=== PATIENT | female | born 1965 | race African-American/Black ===

== ENCOUNTER → 2021-01-01 | Outpatient (CLI) | payer BC ==
[~2021-01-01] VITALS: Ht 162.6 cm; Wt 142.2 kg
[~2021-01-01] MED LIST: AMITRIPTYLINE H10 M1 PO; IRON; LOSARTAN-HCTZ1 EAC2 PO; MEDROLDOSEPACK PO; NAPROSYN500 M1 PO; NORVASC5 MG PO; TYLENOL ARTHRI650 MG PO; VITAMIN D325 MC1 PO; ZANTAC 150MG T150 M1 PO; ZINC50 M3 PO
--- NOTE | ~2021-01-01 | HPC ---
[facility] [place] [address] PAIN MANAGEMENT CONSULTATION Name: INES MORELAND Room #: REG JOSSELINE Marlon.#: [id number] Admission: 01/01/21 Attend Phys: Rod Landrum MD Discharge: Date of : 69 Report #: [id number] THIS REPORT FOR: cc: Trinh Sanders MD,Rod Orosco MD, MD ~ cc: Trinh Sanders MD DATE OF SERVICE: 01/01/2021 CHIEF COMPLAINT: Right buttocks pain down into the left calf. HISTORY OF PRESENT ILLNESS: The patient is a 55-year-old female who has been experiencing pain in the right side for about the last month. Her pain started after doing a [employer] exercise class. She has had back and leg pain in the past, first noted problems in about 1997. She has had some pain which has waxed and waned. She rates her pain as 5/10 at this juncture. She has tried muscle relaxants and nonsteroidal anti-inflammatory medications. She has had both COVID-19 vaccinations. She has undergone chiropractic treatment with no long-term benefit. She is experiencing heaviness in her right leg. She has pain in the buttocks that radiates down the right side into her right leg. She denies any bowel or bladder dysfunction at this juncture. Pain is worse when she is lying down as well as with walking. Sleep can be problematic because of the pain. She notes that the pain is worse after the first few steps. She describes the pain as continuous, constant, aching, sharp and tender. She works as a nightman. She has been doing light duty working on the [employer]. She has come to the pain clinic for evaluation and treatment. MEDICATIONS: ____ mg p.o. daily, losartan/hydrochlorothiazide, Tylenol 600 mg Extra Strength 2 tablets p.o. q.12 hours p.r.n. pain, Naprosyn 500 mg p.r.n. pain, vitamin D3 1000 units daily, zinc 1 tablet daily. ALLERGIES: No known drug allergies. PAST MEDICAL HISTORY: Hypertension. PAST SURGICAL HISTORY: Gallbladder removal 2000; uterine cyst removal 2009. SOCIAL HISTORY, PQRS: VITAL SIGNS: Blood pressure 167/90, heart rate 83, respiratory rate 16, room air saturation is 100%, height 5 feet 4 inches, weight 313 pounds. Pain intensity 3/10. Blood thinner: The patient is not receiving blood thinning medication. Functional assessment ____: 54/70. [address] [address] PAIN MANAGEMENT CONSULTATION Name: INES MORELAND [facility] [id number] Admission: 01/01/21 Attend Phys: Rod Landrum MD Discharge: Date of : 69 Report #: [id number] Hypertension: The patient has been treated for hypertension. Tobacco: The patient has never smoked. Recreational drug use: The patient denies. Alcohol: The patient denies. Risk assessment ____: Low for opioid use. REVIEW OF SYSTEMS, EARS, EYES, NOSE AND THROAT: The patient wears glasses. CARDIOVASCULAR: Hypertension. RESPIRATORY: No complaints. GASTROINTESTINAL: None. GENITOURINARY: Awakens at night to micturate. MUSCULOSKELETAL: Fever, night sweats, fatigue, weakness. NEUROLOGIC: None. INTEGUMENTARY: None. PSYCHIATRIC: Insomnia. ENDOCRINE: Gallbladder. HEMATOLOGIC/LYMPHATICS: None. PHYSICAL EXAMINATION: GENERAL: The patient is a well-developed, well-nourished, obese black female. Appears her stated age. She is alert and oriented x 3. Her affect is appropriate. Speech is fluent. HEENT: Normocephalic, atraumatic. Extraocular eye muscles intact. Sclerae are nonicteric. The patient is wearing a facial covering. NECK: Without adenopathy or JVD. HEART: Regular rate. LUNGS: Clear to auscultation. ABDOMEN: Nontender. MUSCULOSKELETAL: Upper extremity muscle strength judged to be 5/5 for the major muscle groups in the upper extremity. The patient without significant scoliosis, kyphosis. Lower extremity, patient has pain and discomfort in the lower portion of her back with pain that is radiating down in the right buttocks and the L5-S1 dermatomal distribution. The patient walks with a slight antalgic gait. Positive straight leg raise on the right. LABORATORY DATA: No new laboratory values. IMPRESSION: 1. Right sciatic nerve pain with radiculopathy. 2. Hypertension. 3. Morbid obesity. [address] [address] PAIN MANAGEMENT CONSULTATION Name: INES MORELAND Room #: REG ARNOLDOFuentes Kumar#: [id number] Admission: 01/01/21 Attend Phys: Rod Landrum MD Discharge: Date of : 69 Report #: [id number] RECOMMENDATIONS: We discussed treatment options with the patient. At this juncture, we will try a conservative approach. The patient is having some difficulty sleeping. We will have the patient try amitriptyline. She will try 10 mg tablets for about 3 days. If she does not have any problems with that, she will increase it to 2 tablets for a total of 20 mg at bedtime. The patient will also try a Medrol Dosepak as directed. She will try this and return to the pain clinic. At that time, we will evaluate her for the possibility of a lumbar epidural steroid injection should she need or elect to proceed. We would like to thank you for letting us participate in her care. We hope she continues to improve. By: [id number] Rod Landrum MD /cinthia
[2021-01-01 08:51] VITALS: BP 167/90
--- NOTE | 2021-01-01 09:02 | NUR ---
Pain Clinic Assessment: 1. History of Osteoarthritis: RIGHT HIP History of Rheumatoid Arthritis: Not Applicable 2. Height: 5 ft. 4 in. 162.6 cm. Weight: 313.4 lb. oz. 142.158 kg. Patient's BMI: 53.8 3. Vital Signs: BP: 167/90 Pulse: 83 Resp: 18 Temp: 02 Sat: 100 ECG Mon: 4. Pain Intensity: 5 TO 10 5. Fall Risk: Dizziness: N Needs help standing or walking: N Fallen in the last 3 months: Y Fall risk comments: 6. Patient on Blood Thinner: None 7. History of Hypertension: Y 8. Opioid Therapy greater than 6 weeks: N Opiate Contract Signed: 9. Risk Assessment Tool Provided: LOW-0 10. Functional Assessment Tool: 54/ 11. Recreational Drug Use: Never Drug Type: Tobacco Use: Never Smoker Tobacco Type: Amount or Packs/day: How Many Years: Alcohol Use: No Frequency: Quant:
== END ==
LOC: PAIN 06:59
PROVIDERS: ATTEND Anesthesiology Pain Medicine
DX: M54.31 Sciatica, right side (principal); M54.16 Radiculopathy, lumbar region; I10 Essential (primary) hypertension; E66.01 Morbid (severe) obesity due to excess calories; Z79.899 Other long term (current) drug therapy; Z79.891 Long term (current) use of opiate analgesic

== ENCOUNTER → 2021-01-13 | Outpatient (CLI) | payer BC ==
[~2021-01-13] VITALS: Ht 162.6 cm; Wt 142.0 kg
[2021-01-13 12:00] VITALS: BP 162/91
--- NOTE | 2021-01-13 12:03 | NUR ---
Pain Clinic Assessment: 1. History of Osteoarthritis: RIGHT HIP History of Rheumatoid Arthritis: Not Applicable 2. Height: 5 ft. 4 in. 162.6 cm. Weight: 313.0 lb. oz. 141.976 kg. Patient's BMI: 53.7 3. Vital Signs: BP: 162/91 Pulse: 92 Resp: 16 Temp: 02 Sat: 100 ECG Mon: 4. Pain Intensity: 3 5. Fall Risk: Dizziness: N Needs help standing or walking: N Fallen in the last 3 months: N Fall risk comments: 6. Patient on Blood Thinner: None 7. History of Hypertension: Y 8. Opioid Therapy greater than 6 weeks: N Opiate Contract Signed: 9. Risk Assessment Tool Provided: LOW-0 10. Functional Assessment Tool: 54/70 11. Recreational Drug Use: Never Drug Type: Tobacco Use: Never Smoker Tobacco Type: Amount or Packs/day: How Many Years: Alcohol Use: No Frequency: Quant:
== END | disposition home or self-care (01) ==
LOC: PAIN 07:12
PROVIDERS: ATTEND Anesthesiology Pain Medicine
DX: M54.16 Radiculopathy, lumbar region (principal); G89.29 Other chronic pain; Z98.890 Other specified postprocedural states; Z79.899 Other long term (current) drug therapy

== ENCOUNTER → 2021-02-17 | Outpatient (CLI) | payer BC ==
[~2021-02-17] VITALS: Ht 162.6 cm; Wt 139.9 kg
[~2021-02-17] MED LIST changes: +APAP W/CODEINE1 TA2 PO
[2021-02-17 07:59] VITALS: BP 154/90
--- NOTE | 2021-02-17 08:10 | NUR ---
Pain Clinic Assessment: 1. History of Osteoarthritis: RIGHT HIP History of Rheumatoid Arthritis: Not Applicable 2. Height: 5 ft. 4 in. 162.6 cm. Weight: 308.4 lb. oz. 139.890 kg. Patient's BMI: 52.9 3. Vital Signs: BP: 154/90 Pulse: 85 Resp: 16 Temp: 02 Sat: 100 ECG Mon: 4. Pain Intensity: 3 5. Fall Risk: Dizziness: N Needs help standing or walking: Y Fallen in the last 3 months: N Fall risk comments: 6. Patient on Blood Thinner: None 7. History of Hypertension: Y 8. Opioid Therapy greater than 6 weeks: N Opiate Contract Signed: 9. Risk Assessment Tool Provided: LOW-0 10. Functional Assessment Tool: 54/70 11. Recreational Drug Use: Never Drug Type: Tobacco Use: Never Smoker Tobacco Type: Amount or Packs/day: How Many Years: Alcohol Use: No Frequency: Quant:
== END | disposition home or self-care (01) ==
LOC: PAIN 07:48
PROVIDERS: ATTEND Anesthesiology Pain Medicine
DX: M54.41 Lumbago with sciatica, right side (principal); M54.16 Radiculopathy, lumbar region; G89.29 Other chronic pain; I10 Essential (primary) hypertension; E66.9 Obesity, unspecified; Z98.890 Other specified postprocedural states; Z79.899 Other long term (current) drug therapy; Z90.49 Acquired absence of other specified parts of digestive tract